=== PATIENT | male | born 1970 | race Caucasian/White ===

== ENCOUNTER 2017-04-03 12:25 | Emergency (ER) | payer MEDICAID ==
[~2017-04-03] VITALS: Ht 172.7 cm; Wt 78.0 kg
[~2017-04-03 12:25] MED LIST: /CIPR75TA OR; ACET65TA OR; FLAG500T OR; MULTIVIT PO; TYL RE; VICO5TAB OR
[2017-04-03] MEDS ORDERED: CETI5TAB2 PO (12:31)
[2017-04-03] MEDS ORDERED: CYCL10TA PO (13:49)
[2017-04-03 13:54] VITALS: BP 144/94
== END 2017-04-03 14:26 | disposition home or self-care (01) ==
LOC: M ED 13:42
DX: M54.9 Dorsalgia, unspecified (principal); F17.200 Nicotine dependence, unspecified, uncomplicated; Z79.899 Other long term (current) drug therapy

== ENCOUNTER → 2017-11-22 | Outpatient (CLI) | payer MEDICAID | LOC: M OUTALCOH 12:27 | DX: F15.20 Other stimulant dependence, uncomplicated (principal) ==

== ENCOUNTER 2017-11-30 13:00 | Outpatient (RCR) | payer MEDICAID | END 2017-12-20 | LOC: M OUTALCOH 12-06 16:00 | DX: F15.20 Other stimulant dependence, uncomplicated (principal); F17.200 Nicotine dependence, unspecified, uncomplicated ==

== ENCOUNTER 2017-12-22 14:31 | Outpatient (RCR) | payer MEDICAID | END 2018-01-20 | LOC: M OUTALCOH 14:31 | DX: F15.20 Other stimulant dependence, uncomplicated (principal); F17.200 Nicotine dependence, unspecified, uncomplicated ==

== ENCOUNTER → 2018-01-15 | Outpatient (REF) | payer MEDICAID, OTHER ==
[2018-01-15 22:09] LABS: INFLUENZA A AMPLIFICATION NEGATIVE (NEGATIVE); INFLUENZA B AMPLIFICATION NEGATIVE (NEGATIVE)
== END ==
LOC: M LAB REF 21:14
DX: J11.1 Influenza due to unidentified influenza virus with other respiratory manifestations (principal)
CPT/HCPCS: 87502

== ENCOUNTER 2018-01-24 15:00 | Outpatient (RCR) | payer MEDICAID | END 2018-02-19 | LOC: M OUTALCOH 01-29 14:00 | DX: F15.20 Other stimulant dependence, uncomplicated (principal); F17.200 Nicotine dependence, unspecified, uncomplicated | CPT/HCPCS: 90834 ==

== ENCOUNTER 2018-02-21 08:59 | Outpatient (RCR) | payer MEDICAID | END 2018-03-22 | LOC: M OUTALCOH 03-20 09:00 | DX: F15.20 Other stimulant dependence, uncomplicated (principal); F17.200 Nicotine dependence, unspecified, uncomplicated ==

== ENCOUNTER 2019-05-15 05:11 | Emergency (ER) | payer MEDICAID, OTHER ==
[~2019-05-15] VITALS: Ht 172.7 cm; Wt 79.5 kg
[~2019-05-15 05:11] MED LIST changes: +CETI5TAB2 PO; +CYCL10TA PO
--- NOTE | 2019-05-15 06:58 | REP ---
Supine abdomen single AP view: The bowel gas pattern is normal. There is a moderate volume of fecal residue throughout the colon. There are no calcifications or foreign bodies. The skeletal structures and soft tissues are unremarkable. Impression: Normal bowel gas pattern. Moderate volume of fecal residue throughout the colon. Electronically Signed by Jorje Dennis MD 05/15/2019 06:49 A
[2019-05-15 07:24] VITALS: BP 133/81
== END 2019-05-15 07:26 | disposition home or self-care (01) ==
LOC: M ED 05:11
DX: K59.00 Constipation, unspecified (principal); K62.89 Other specified diseases of anus and rectum; K62.5 Hemorrhage of anus and rectum; M54.42 Lumbago with sciatica, left side; G89.29 Other chronic pain; M54.9 Dorsalgia, unspecified; K44.9 Diaphragmatic hernia without obstruction or gangrene; Z72.0 Tobacco use

== ENCOUNTER 2020-08-31 19:55 | Emergency (ER) | payer OTHER ==
[~2020-08-31] VITALS: Ht 172.7 cm; Wt 80.4 kg
[~2020-08-31 19:55] MED LIST changes: +CYCL-707 PO; -CYCL10TA PO
[2020-08-31 22:38] VITALS: BP 160/100
== END 2020-08-31 22:38 | disposition home or self-care (01) ==
LOC: M ED 19:55
DX: T22.111A Burn of first degree of right forearm, initial encounter (principal); T31.0 Burns involving less than 10% of body surface; J70.5 Respiratory conditions due to smoke inhalation; X08.8XXA Exposure to other specified smoke, fire and flames, initial encounter; Y92.099 Unspecified place in other non-institutional residence as the place of occurrence of the external cause; Y93.9 Activity, unspecified; Y99.9 Unspecified external cause status; F17.200 Nicotine dependence, unspecified, uncomplicated

== ENCOUNTER → 2021-01-11 | Outpatient (REF) | payer OTHER | LOC: M LAB REF 11:41 | PROVIDERS: ATTEND Surgery | DX: U07.1 COVID-19 (principal) ==

== ENCOUNTER 2022-02-24 01:45 | Emergency (ER) | payer MEDICAID, OTHER ==
[~2022-02-24] VITALS: Ht 172.7 cm; Wt 74.2 kg
[2022-02-24 01:45] VITALS: BP 143/85
== END 2022-02-24 05:43 | disposition home or self-care (01) ==
LOC: M ED 01:45
DX: F43.20 Adjustment disorder, unspecified (principal); F15.10 Other stimulant abuse, uncomplicated; F90.9 Attention-deficit hyperactivity disorder, unspecified type; F17.210 Nicotine dependence, cigarettes, uncomplicated; F12.20 Cannabis dependence, uncomplicated

== ENCOUNTER → 2023-02-10 | Outpatient (REF) | payer OTHER ==
[2023-02-10 18:25] LABS: HIV 1&2 SCREEN ATELLICA NEGATIVE (NEGATIVE)
== END ==
LOC: M LAB REF 16:28
PROVIDERS: ATTEND Family Medicine Addiction Medicine
DX: Z11.3 Encounter for screening for infections with a predominantly sexual mode of transmission (principal)

== ENCOUNTER → 2023-02-13 | Outpatient (REF) | payer OTHER ==
[2023-02-13 15:39] LABS: GC DNA AMPLIFICATION NEGATIVE (NEGATIVE)
== END ==
LOC: M LAB REF 12:21
PROVIDERS: ATTEND Family Medicine Addiction Medicine
DX: Z11.3 Encounter for screening for infections with a predominantly sexual mode of transmission (principal)

== ENCOUNTER 2023-07-24 23:05 | Emergency (ER) | payer OTHER ==
[~2023-07-24] VITALS: Ht 172.7 cm; Wt 65.3 kg
[2023-07-24 23:06] VITALS: BP 128/75; TEMP 98; O2SAT 100
[2023-07-24 23:42] LABS: HEMATOCRIT 39.9 % (42.0-52.0); HEMOGLOBIN 13.3 g/dl (13.5-17.5); MEAN CORPUSCULAR HEMOGLOBIN 30.4 pg (27.0-33.0); MEAN CORPUSCULAR HGB CONC 33.3 g/dl (32.0-36.5); MEAN CORPUSCULAR VOLUME 91.1 fl (80.0-96.0); PLATELET COUNT, AUTOMATED 292 10^3/uL (150-450); RED BLOOD COUNT 4.38 10^6/uL (4.30-6.10); WHITE BLOOD COUNT 6.2 10^3/uL (4.0-10.0)
[2023-07-25 00:14] LABS: ALBUMIN 3.4 G/DL (3.2-5.2); ALKALINE PHOSPHATASE 81 U/L (46-116); ALT/SGPT 41 U/L (7.0-40); AST/SGOT 29 U/L (<34); BILIRUBIN,TOTAL 0.2 MG/DL (0.3-1.2); BLOOD UREA NITROGEN 18 MG/DL (9-23); CALCIUM LEVEL 8.7 MG/DL (8.5-10.1); CARBON DIOXIDE LEVEL 31 MMOL/L (20-31); CHLORIDE LEVEL 105 MMOL/L (98-107); CREATININE FOR GFR 0.94 MG/DL (0.70-1.30); GLOMERULAR FILTRATION RATE > 60.0 (>56); GLUCOSE, FASTING 102 MG/DL (60-100); POTASSIUM SERUM 3.7 MMOL/L (3.5-5.1); SODIUM LEVEL 142 MMOL/L (136-145); TOTAL PROTEIN 6.8 G/DL (5.7-8.2)
[2023-07-25] MEDS ORDERED: DOXYCYCLINE HYCLATE 100MG TABLET PO ONE (01:25)
[2023-07-25] MEDS ORDERED: DOXY-443 PO (01:25)
== END 2023-07-25 01:44 | disposition home or self-care (01) ==
LOC: M ED 23:05
DX: L03.113 Cellulitis of right upper limb (principal); M70.21 Olecranon bursitis, right elbow; F90.9 Attention-deficit hyperactivity disorder, unspecified type; F17.200 Nicotine dependence, unspecified, uncomplicated; Z59.00 Homelessness unspecified; Z79.899 Other long term (current) drug therapy

== ENCOUNTER 2024-04-12 17:20 | Emergency (ER) | payer OTHER, SELFPAY ==
[~2024-04-12] VITALS: Ht 172.7 cm; Wt 63.5 kg
[~2024-04-12 17:20] MED LIST changes: +DOXY-323 PO
[2024-04-12 17:21] VITALS: BP 158/88; TEMP 97.9; O2SAT 99
== END 2024-04-12 20:54 | disposition left against medical advice (07) ==
LOC: M ED 17:20
DX: Z53.21 Procedure and treatment not carried out due to patient leaving prior to being seen by health care provider (principal)

== ENCOUNTER 2024-04-12 22:00 | Emergency (ER) | payer SELFPAY | END 2024-04-13 05:42 | disposition left against medical advice (07) | LOC: M ED 22:00 | DX: Z53.21 Procedure and treatment not carried out due to patient leaving prior to being seen by health care provider (principal) ==

== ENCOUNTER 2024-07-08 15:03 | Emergency (ER) | payer SELFPAY ==
[~2024-07-08] VITALS: Ht 172.7 cm; Wt 65.2 kg
[2024-07-08 15:04] VITALS: BP 137/88; O2SAT 98
[2024-07-08 15:32] VITALS: TEMP 97
== END 2024-07-08 20:42 | disposition home or self-care (01) ==
LOC: M ED 15:03
DX: H61.812 Exostosis of left external canal (principal); F90.9 Attention-deficit hyperactivity disorder, unspecified type; F17.200 Nicotine dependence, unspecified, uncomplicated; Z79.2 Long term (current) use of antibiotics